=== PATIENT | female | born 1995 | race Caucasian/White ===

== ENCOUNTER 2018-03-11 15:39 | Emergency (ER) | payer OTHER ==
[2018-03-11] MEDS: LORAZEPAM 1 MG TAB PO (19:50)
[2018-03-11] MEDS: KETOROLAC 30 MG INJ IM (19:51)
== END 2018-03-11 22:35 | disposition home or self-care (01) ==
LOC: FTE 15:39
DX: S20.211A Contusion of right front wall of thorax, initial encounter (principal); S80.02XA Contusion of left knee, initial encounter; V49.50XA Passenger injured in collision with unspecified motor vehicles in traffic accident, initial encounter
CPT/HCPCS: 70450; 71046; 72040; 73562; 73590; 81025; 96372; 99285-25